=== PATIENT | female | born 1995 | race African-American/Black ===

== ENCOUNTER 2024-01-03 08:57 | Emergency (ER) | payer OTHER ==
[~2024-01-03] VITALS: Ht 172.7 cm; Wt 58.0 kg
[2024-01-03 09:23] VITALS: BP 112/70; PULSE 61; RESP 18; TEMP 97.7
== END 2024-01-03 12:01 | disposition home or self-care (01) ==
LOC: EMS 08:58
DX: M79.672 Pain in left foot (principal); M79.671 Pain in right foot; Z91.040 Latex allergy status; Z79.899 Other long term (current) drug therapy
CPT/HCPCS: 99281; Z7502